=== PATIENT | female | born 1975 ===

== ENCOUNTER 2017-06-01 08:44 | Emergency (ER) | payer BC ==
--- NOTE | 2017-06-01 10:31 | UC ---
Throat Pain/Nasal Germán HPI - HPI Summary HPI Summary: ONSET OF ST LAST NIGHT. ALSO HAS MILD COUGH AND RUNNY NOSE. NO FEVER OR EAR PAIN. DAUGHTER HAD STREP AND FINISHED ABX 3 DAYS AGO. - History of Current Complaint Chief Complaint: UCRespiratory Stated Complaint: SORE THROAT Time Seen by Provider: 06/01/17 10:23 Hx Obtained From: Patient Hx Last Menstrual Period: 05/17/17 Onset/Duration: Gradual Onset, Lasting Hours, Still Present Severity: Moderate Pain Intensity: 2 Pain Scale Used: 0-10 Numeric Cough: Nonproductive Associated Signs & Symptoms: Positive: Negative - Allergies/Home Medications Allergies/Adverse Reactions: Allergies Allergy/AdvReac Type Severity Reaction Status Date / Time No Known Allergies Allergy Verified 06/01/17 09:13 Home Medications: Home Medications NK [No Home Medications Reported] 06/01/17 [History Confirmed 06/01/17] PMH/Surg Hx/FS Hx/Imm Hx - Additional Past Medical History Additional PMH: ANEMIA - Surgical History Surgical History: Yes Surgery Procedure, Year, and Place: wisdom teeth - Family History Known Family History: Negative: Hypertension - Social History Alcohol Use: Weekly Substance Use Type: None Smoking Status (MU): Never Smoked Tobacco Review of Systems Constitutional: Negative ENT: Sore Throat, Nasal Discharge Respiratory: Cough Cardiovascular: Negative Gastrointestinal: Negative All Other Systems Reviewed And Are Negative: Yes Physical Exam Triage Information Reviewed: Yes Appearance: Well-Appearing, No Pain Distress, Well-Nourished Vital Signs: Initial Vital Signs Temp 99 F 06/01/17 09:14 Pulse 68 06/01/17 09:14 Resp 15 06/01/17 09:14 BP 108/66 06/01/17 09:14 Pulse Ox 100 06/01/17 09:14 Vital Signs Reviewed: Yes Eyes: Positive: Conjunctiva Clear ENT: Positive: Hearing grossly normal, Pharynx normal, TMs normal Neck: Positive: Supple, Nontender, No Lymphadenopathy Respiratory Exam: Normal Cardiovascular Exam: Normal Abdomen Description: Positive: Soft Musculoskeletal: Positive: No Edema Neurological: Positive: Alert Psychological: Positive: Age Appropriate Behavior Skin: Negative: rashes Diagnostics - Laboratory Diagnostic Studies Completed/Ordered: RAPID STREP NEGATIVE Throat Pain/Nasal Course/Dx - Differential Dx/Diagnosis Provider Diagnoses: ACUTE URI Discharge - Discharge Plan Condition: Stable Disposition: HOME Patient Education Materials: Upper Respiratory Infection (ED) Referrals: Katalina Singh MD [Primary Care Provider] - If Needed Additional Instructions: STREP TEST NEGATIVE. YOUR SYMPTOMS ARE LIKELY VIRALLY MEDIATED AND SHOULD RESOLVE ON THEIR OWN WITH TIME. REST, HYDRATE, OTC MEDS NEEDED. SEEK FOLLOW- UP IF YOU ARE NOT IMPROVING OVER THE NEXT 1-2 WEEKS.
[2017-06-01 10:59] VITALS: BP 110/68
== END 2017-06-01 10:55 | disposition home or self-care (01) ==
LOC: UCEAST 08:44
DX: J06.9 Acute upper respiratory infection, unspecified (principal)
CPT/HCPCS: 87651; 99211; G0463

== ENCOUNTER 2018-10-06 07:29 | Emergency (ER) | payer BC ==
[2018-10-06 07:41] VITALS: BP 108/70
--- NOTE | 2018-10-06 08:35 | UC ---
Throat Pain/Nasal Germán HPI - HPI Summary HPI Summary: 43-year-old woman Comes in with a chief complaint of sore throat for 1 day. It hurts more to swallow. No fevers minimal rhinorrhea. No cough or chest congestion. There has been strep throat in one of her children's friends. No one her family has strep throat this time. - History of Current Complaint Chief Complaint: UCGeneralIllness Stated Complaint: SORE THROAT Time Seen by Provider: 10/06/18 08:29 Hx Last Menstrual Period: 10/01/18 Pain Intensity: 3 - Allergies/Home Medications Allergies/Adverse Reactions: Allergies Allergy/AdvReac Type Severity Reaction Status Date / Time No Known Allergies Allergy Verified 10/06/18 07:40 PMH/Surg Hx/FS Hx/Imm Hx Previously Healthy: Yes - Surgical History Surgical History: Yes Surgery Procedure, Year, and Place: wisdom teeth - Family History Known Family History: Negative: Hypertension - Social History Alcohol Use: Weekly Substance Use Type: None Smoking Status (MU): Never Smoked Tobacco Review of Systems All Other Systems Reviewed And Are Negative: Yes Constitutional: Positive: Negative Skin: Positive: Negative Eyes: Positive: Negative ENT: Positive: Sore Throat, Nasal Discharge Respiratory: Positive: Negative Cardiovascular: Positive: Negative Gastrointestinal: Positive: Negative Motor: Positive: Negative Neurovascular: Positive: Negative Musculoskeletal: Positive: Negative Neurological: Positive: Negative Psychological: Positive: Negative Is Patient Immunocompromised?: No Physical Exam Triage Information Reviewed: Yes Appearance: Well-Appearing, No Pain Distress, Well-Nourished Vital Signs: Initial Vital Signs Temp 99.1 F 10/06/18 07:37 Pulse 83 10/06/18 07:37 Resp 18 10/06/18 07:37 BP 108/70 10/06/18 07:37 Pulse Ox 96 10/06/18 07:37 Vital Signs Reviewed: Yes Eye Exam: Normal Eyes: Positive: Conjunctiva Clear ENT: Positive: Pharyngeal erythema, TMs normal Neck: Positive: Supple Respiratory: Positive: Lungs clear, Normal breath sounds, No respiratory distress Cardiovascular: Positive: RRR Musculoskeletal Exam: Normal Musculoskeletal: Positive: Strength Intact, ROM Intact Neurological Exam: Normal Neurological: Positive: Alert, Muscle Tone Normal Psychological Exam: Normal Psychological: Positive: Age Appropriate Behavior Skin Exam: Normal Throat Pain/Nasal Course/Dx - Course Course Of Treatment: STREP NEGATIVE CONTINUE SX TREATMENT RECHECK IF NOT IMPROVING OR WORSE - Differential Dx/Diagnosis Provider Diagnosis: Pharyngitis Discharge - Sign-Out/Discharge Documenting (check all that apply): Patient Departure All imaging exams completed and their final reports reviewed: No Studies - Discharge Plan Condition: Stable Disposition: HOME Patient Education Materials: Pharyngitis (ED) Referrals: Katalina Singh MD [Primary Care Provider] - Additional Instructions: FOLLOW UP WITH YOUR DOCTOR IF NOT COMPLETELY IMPROVED. GET RECHECKED SOONER IF YOUR CONDITION WORSENS OR ANY QUESTIONS OR CONCERNS. - Billing Disposition and Condition Condition: STABLE Disposition: Home
== END 2018-10-06 08:40 | disposition home or self-care (01) ==
LOC: UCEAST 07:29
DX: J02.9 Acute pharyngitis, unspecified (principal)
CPT/HCPCS: 87651; 99211; G0463

== ENCOUNTER 2018-10-22 11:17 | Emergency (ER) | payer BC ==
[2018-10-22 11:28] VITALS: BP 109/62
--- NOTE | 2018-10-22 11:29 | UC ---
General HPI - HPI Summary HPI Summary: 43 yo female c/o progressively feeling worse, with sore throat, mild cough, eyes a little red / itchy (R>L). No rash. No GI / sx. No fever / chills. Has been very busy lately, and tired. 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 No breathing obstruction, but does hurt to swallow. - History of Current Complaint Chief Complaint: UCRespiratory Stated Complaint: SORE THROAT Time Seen by Provider: 10/22/18 11:23 Hx Obtained From: Patient Hx Last Menstrual Period: 10/06/18 Pain Intensity: 4 - Allergy/Home Medications Allergies/Adverse Reactions: Allergies Allergy/AdvReac Type Severity Reaction Status Date / Time environmental Allergy Eyes Uncoded 10/22/18 11:28 Itchy/Swollen/Red/Watery Home Medications: Home Medications Acetaminophen [Mapap] 500 mg PO ONCE PRN 10/22/18 [History Confirmed 10/22/18] Loratadine [Claritin] 10 mg PO ONCE PRN 10/22/18 [History Confirmed 10/22/18] Multivitamin [Multivitamins] 1 cap PO DAILY 10/22/18 [History Confirmed 10/22/18 ] PMH/Surg Hx/FS Hx/Imm Hx Previously Healthy: Yes - Surgical History Surgical History: Yes Surgery Procedure, Year, and Place: wisdom teeth - Family History Known Family History: Negative: Hypertension - Social History Alcohol Use: Weekly Substance Use Type: None Smoking Status (MU): Never Smoked Tobacco Review of Systems All Other Systems Reviewed And Are Negative: Yes Constitutional: Positive: Other - see hpi Skin: Positive: Other - see hpi Eyes: Positive: Other - see hpi ENT: Positive: Other - see hpi Respiratory: Positive: Other - see hpi Cardiovascular: Positive: Other - see hpi Gastrointestinal: Positive: Other - see hpi Genitourinary: Positive: Other - see hpi Motor: Positive: Other - see hpi Neurovascular: Positive: Other - see hpi Musculoskeletal: Positive: Other: - see hpi Neurological: Positive: Other - see hpi Psychological: Positive: Negative Is Patient Immunocompromised?: No Physical Exam Triage Information Reviewed: Yes Appearance: Well-Nourished - sitting up, conversing in full sentances. Looks a little worn, but NAD. Vital Signs: Initial Vital Signs Temp 99.5 F 06/08/19 11:22 Pulse 67 10/22/18 11:22 Resp 18 10/22/18 11:22 BP 109/62 10/22/18 11:22 Pulse Ox 99 10/22/18 11:22 Vital Signs Reviewed: Yes Eye Exam: Other - R sclera pink, L sclera light pink. Mild tearing. ENT: Positive: Pharyngeal erythema, Nasal congestion, TM dull - TM dull au, Other - post pharynx red, no alcides sores / exudates. Uvula edematous, but midline and not obstructive. No stridor. Trachea midline. Mild lymphadenopathy Neck exam: Normal - supple see above Neck: Positive: Supple Respiratory Exam: Normal Respiratory: Positive: Chest non-tender, Lungs clear, Normal breath sounds, No respiratory distress, No accessory muscle use Cardiovascular Exam: Normal Cardiovascular: Positive: RRR, No Murmur, Pulses Normal, Brisk Capillary Refill Abdominal Exam: Normal Abdomen Description: Positive: Nontender Musculoskeletal Exam: Normal - gait steady. moves x 4 ext's Neurological Exam: Normal - grossly nonfocal Psychological Exam: Normal - conversing easily and appropriately Skin Exam: Normal - nondiaphoretic. no visible or reported rash Course/Dx - Course Course Of Treatment: RST negative. Cx sent. Had mono when young. But will check for reactivation. Blood work, including cmp, crp, cbc, mono D/w pt coa / tx plan. Will start abx / prednisone, pending clinical response and ancillary results. F/u PCP if not better. Seek medical attention of worse. Questions as posed answered to the best of my ability. - Diagnoses Provider Diagnosis: Pharyngitis, URI (upper respiratory infection) Discharge - Sign-Out/Discharge Documenting (check all that apply): Post-Discharge Follow Up All imaging exams completed and their final reports reviewed: No Studies - Discharge Plan Condition: Stable Disposition: HOME Prescriptions: Azithromyxin JEEVAN (NF) [Z-Jeevan (Zithromax) 250 mg tabs #6] 2 tab PO .TODAY, THEN 1 DAILY #6 tab predniSONE TAB* [Deltasone 10 MG TAB*] 10 mg PO DAILY #14 tab Patient Education Materials: Pharyngitis (ED), Upper Respiratory Infection (ED) Referrals: No Primary Care Phys,NOPCP [Primary Care Provider] - Additional Instructions: Please follow up with your primary care physician this week, if symptoms do not improve. Seek medical attention if any worse or new symptoms. Hydrate. Yogurt and / or probiotic daily at least for 10 days. Rapid strep test negative. Pending: Throat culture Blood work - Billing Disposition and Condition Condition: STABLE Disposition: Home
[2018-10-22 14:20] LABS: ABS Basophils 0.1 10^3/ul (0-0.2); ABS Eosinophils 0.2 10^3/ul (0-0.6); ABS Lymphocytes 1.8 10^3/ul (1.0-4.8); ABS Monocytes 0.8 10^3/ul (0-0.8); Eosinophil % 2.5 %; Hematocrit 37 % (35-47); Hemoglobin 12.3 g/dL (12.0-16.0); Lymphocyte % 17.8 %; Mean Corpuscular HGB Conc 34 g/dL (31-36); Mean Corpuscular Hemoglobin 30 pg (27-31); Mean Corpuscular Volume 89 fL (80-97); Mean Platelet Volume 10.2 fL (7.4-10.4); Platelet Count 235 10^3/uL (150-450); Red Blood Count 4.12 10^6 /uL (3.70-4.87); Red Cell Distribution Width 13 % (10-15); White Blood Count 9.9 10^3/uL (3.5-10.8)
--- NOTE | 2018-10-23 07:13 | UC ---
- Progress Note Progress Note: Labs reviewed, seen yesterday with pharyngitis. Please advise that blood count is normal, no increase in white count, and monospot is negative. Course/Dx - Diagnoses Provider Diagnoses: Pharyngitis, URI (upper respiratory infection) Discharge - Sign-Out/Discharge Documenting (check all that apply): Patient Departure All imaging exams completed and their final reports reviewed: No Studies - Discharge Plan Condition: Stable Disposition: HOME Prescriptions: Azithromyxin JEEVAN (NF) [Z-Jeevan (Zithromax) 250 mg tabs #6] 2 tab PO .TODAY, THEN 1 DAILY #6 tab predniSONE TAB* [Deltasone 10 MG TAB*] 10 mg PO DAILY #14 tab Patient Education Materials: Pharyngitis (ED), Upper Respiratory Infection (ED) Referrals: No Primary Care Phys,NOPCP [Primary Care Provider] - Additional Instructions: Please follow up with your primary care physician this week, if symptoms do not improve. Seek medical attention if any worse or new symptoms. Hydrate. Yogurt and / or probiotic daily at least for 10 days. Rapid strep test negative. Pending: Throat culture Blood work - Billing Disposition and Condition Condition: STABLE Disposition: Home
[2018-10-23 14:14] LABS: Albumin 4.1 g/dL (3.2-5.2); Calcium 9.7 mg/dL (8.6-10.3); Potassium 4.5 mmol/L (3.5-5.0); Total Bilirubin 0.5 mg/dL (0.2-1.0)
[2018-10-23 14:20] LABS: Albumin/Globulin Ratio 1.3 (1-3); BUN/Creatinine Ratio 16.2 (8-20); EGFR African American 113.2 (>60); EGFR Non-African American 93.6 (>60); Globulin 3.1 g/dL (2-4); Total Protein 7.2 g/dL (6.4-8.9)
== END 2018-10-22 12:38 | disposition home or self-care (01) ==
LOC: UCEAST 11:17
DX: J02.9 Acute pharyngitis, unspecified (principal); J06.9 Acute upper respiratory infection, unspecified
CPT/HCPCS: 80053; 85025; 86140; 86308; 87070; 87651; 99212; G0463